=== PATIENT | female | born 1995 | race Caucasian/White ===

== ENCOUNTER 2023-01-08 09:26 | Outpatient (CLI) | payer OTHER, MEDICAID, SELFPAY ==
[2023-01-08 09:55] LABS: Basophils Absolute Auto 0.05 K/mm3 (0.00-0.10); Basophils Percent Auto 0.6 % (0.0-1.0); Eosinophils Absolute Auto 0.05 K/mm3 (0.02-0.50); Eosinophils Percent Auto 0.6 % (1.0-6.0); Hematocrit 39.6 % (35.0-49.0); Hemoglobin 13.6 g/dL (12.0-15.0); Immature Granulocyte Absolute 0.03 K/mm3 (0.00-0.00); Immature Granulocyte Percent A 0.4 % (0.0-0.0); Lymphocytes Absolute Auto 2.15 K/mm3 (1.10-4.50); Lymphocytes Percent Auto 26.5 % (18.0-42.0); Mean Corpuscular HGB Conc 34.3 g/dL (32.0-36.0); Mean Corpuscular Hemoglobin 30.9 pg (27.0-31.0); Monocytes Absolute Auto 0.62 K/mm3 (0.10-0.90); Monocytes Percent Auto 7.7 % (2.0-11.0); Neutrophils Absolute Auto 5.2 K/mm3 (1.7-7.2); Neutrophils Percent Auto 64.2 % (50.0-70.0); Platelet Count Result 296 K/mm3 (150-420); Red Cell Distribution Width 11.9 % (11.6-14.4); White Blood Count 8.1 K/mm3 (4.8-10.8)
[2023-01-08 10:56] LABS: Iron 102 ug/dL (50-170)
== END 2023-01-08 09:27 | disposition home or self-care (01) ==
LOC: CHSLAB 09:29
PROVIDERS: PCP Nurse Practitioner Family; Visit Provider Nurse Practitioner Family
DX: D50.9 Iron deficiency anemia, unspecified (principal); N91.2 Amenorrhea, unspecified
CPT/HCPCS: 36415; 83540; 84702; 85025

== ENCOUNTER 2023-01-17 12:47 | Outpatient (CLI) | payer OTHER, MEDICAID, SELFPAY ==
--- NOTE | ~2023-01-17 | US_ITS ---
EXAMINATION: US OB <= 14 weeks fetus DATE: 01/17/2023 13:29 INDICATION: First trimester dating TECHNIQUE: Real-time pelvic transabdominal and transvaginal ultrasound was performed. COMPARISON: None. FINDINGS: The uterus measures 11.9 x 6.7 x 5.5 cm. There is an intrauterine gestational sac. A yolk s ac is identified. heart motion is identified measuring 169 beats per minute (bpm) by M-mode Dop pler. The crown rump length measures 1.9 cm, which correlates with an estimated gestational age of 8 weeks and 3 day(s) (+/-) 4 day(s). The right ovary is not visualized however no right adnexal abnormality is seen. The left ovary measur es 2.2 x 2.2 x 1.4 cm. There is normal vascular flow in the left ovary. There is no free fluid in the pelvis. IMPRESSION: 1. Live intrauterine with an estimated gestational age of 8 weeks and 3 day(s) (+/-) 4 day( s) and an estimated delivery date of 08/26/2023. Reviewed, dictated and finalized at location A. IMPRESSION: 1. Live intrauterine with an estimated gestational age of 8 weeks and 3 day(s) (+/-) 4 day(s) and an estimated delivery date of 08/26/2023.
== END 2023-01-17 12:48 | disposition home or self-care (01) ==
LOC: CHSIMG 12:49
PROVIDERS: PCP Nurse Practitioner Family; Visit Provider Registered Nurse
DX: N91.2 Amenorrhea, unspecified (principal); Z3A.08 8 weeks gestation of pregnancy
CPT/HCPCS: 76801

== ENCOUNTER 2023-03-14 09:39 | Outpatient (CLI) | payer OTHER, MEDICAID, SELFPAY ==
[2023-03-14 10:02] LABS: Basophils Absolute Auto 0.01 K/mm3 (0.00-0.10); Basophils Percent Auto 0.1 % (0.0-1.0); Eosinophils Absolute Auto 0.06 K/mm3 (0.02-0.50); Eosinophils Percent Auto 0.6 % (1.0-6.0); Hemoglobin 12.9 g/dL (12.0-15.0); Immature Granulocyte Absolute 0.04 K/mm3 (0.00-0.00); Immature Granulocyte Percent A 0.4 % (0.0-0.0); Lymphocytes Absolute Auto 2.06 K/mm3 (1.10-4.50); Lymphocytes Percent Auto 20.5 % (18.0-42.0); Mean Corpuscular HGB Conc 33.9 g/dL (32.0-36.0); Mean Corpuscular Hemoglobin 30.3 pg (27.0-31.0); Mean Corpuscular Volume 89.2 fL (78.0-102.0); Mean Platelet Volume 11.7 fl (9.2-11.8); Monocytes Absolute Auto 0.49 K/mm3 (0.10-0.90); Monocytes Percent Auto 4.9 % (2.0-11.0); Neutrophils Absolute Auto 7.4 K/mm3 (1.7-7.2); Neutrophils Percent Auto 73.5 % (50.0-70.0); Platelet Count Result 235 K/mm3 (150-420); Red Blood Count 4.26 M/mm3 (4.20-5.40); Red Cell Distribution Width 12.5 % (11.6-14.4)
[2023-03-14 10:10] LABS: Appearance Urine Clear (Clear); Bilirubin Urine Negative (Negative); Blood Urine 1+ (Negative); Color Urine Light Yellow (Yellow); Glucose Urine UA Negative (Negative); Ketones Urine Negative (Negative); Leukocyte Esterase Ur Trace (Negative); Nitrate Urine Negative (Negative); Protein Urine Negative (Negative); Specific Grav Ur 1.025 (1.010-1.020); Urobilinogen Urine 0.2 mg/dL (0.2-1.0)
[2023-03-14 11:10] LABS: Thyroid Stimulating Hormone 1.07 uIU/mL (0.36-3.74)
[2023-03-14 11:39] LABS: Add Urine Microscopic? YES; Bacteria Urine 4+ /hpf; Squamous Epithelial Cell Urine Moderate /hpf (Few); WBC Urine 0-3 /hpf (0-3)
[2023-03-14 12:25] LABS: HIV 1 P24 AG Negative (Negative); HIV 1/2 AB Negative (Negative)
[2023-03-17 14:44] LABS: Hepatitis B Surface Antigen Nonreactive (Nonreactive); Hepatitis C Virus Antibody Nonreactive; RPR Screen Non-Reactive (Non-Reactive)
[2023-03-17 20:18] LABS: Vitamin D 25 Hydroxy 16 ng/mL (30-100)
[2023-03-18 07:53] LABS: Rubella IgG Antibody 5.98 Index
== END 2023-03-14 09:40 | disposition home or self-care (01) ==
LOC: CHSLAB 09:41
PROVIDERS: PCP Nurse Practitioner Family; Visit Provider Obstetrics & Gynecology
DX: Z34.91 Encounter for supervision of normal pregnancy, unspecified, first trimester (principal)
CPT/HCPCS: 36415; 81001; 82306; 84443; 85025; 86592; 86762; 86787; 86803; 86850; 86900; 86901; 87086; 87088; 87340; 87806

== ENCOUNTER 2023-06-27 14:13 | Outpatient (CLI) | payer OTHER, MEDICAID, SELFPAY ==
[2023-06-27 15:31] LABS: Hematocrit 34.4 % (35.0-49.0); Hemoglobin 11.5 g/dL (12.0-15.0); Mean Corpuscular HGB Conc 33.4 g/dL (32.0-36.0); Mean Corpuscular Hemoglobin 30.2 pg (27.0-31.0); Mean Corpuscular Volume 90.3 fL (78.0-102.0); Mean Platelet Volume 10.1 fl (9.2-11.8); Platelet Count Result 278 K/mm3 (150-420); Red Blood Count 3.81 M/mm3 (4.20-5.40); Red Cell Distribution Width 13.3 % (11.6-14.4); White Blood Count 8.3 K/mm3 (4.8-10.8)
[2023-06-27 15:57] LABS: Glucose 1 Hour PP 50gm Dose 147 mg/dL (70-130)
== END 2023-06-27 14:14 | disposition home or self-care (01) ==
LOC: CHSLAB 14:15
PROVIDERS: PCP Nurse Practitioner Family; Visit Provider Registered Nurse
DX: Z34.90 Encounter for supervision of normal pregnancy, unspecified, unspecified trimester (principal)
CPT/HCPCS: 36415; 82947; 85027

== ENCOUNTER 2023-07-01 14:07 | Outpatient (CLI) | payer OTHER, MEDICAID, SELFPAY ==
[2023-07-01 14:46] LABS: Glucose Fasting Gestational 83 mg/dL (>/=95)
[2023-07-01 15:39] LABS: Glucose 1 Hour Gest 173 mg/dL (70-130)
[2023-07-01 16:42] LABS: Glucose 2 Hour Gest 148 mg/dL (<155)
[2023-07-01 17:32] LABS: Glucose 3 Hour Gest 127 mg/dL (>/=140)
== END 2023-07-01 14:08 | disposition home or self-care (01) ==
LOC: CHSLAB 14:08
PROVIDERS: PCP Nurse Practitioner Family; Visit Provider Registered Nurse
DX: O99.810 Abnormal glucose complicating pregnancy (principal)
CPT/HCPCS: 36415; 82951; 82952

== ENCOUNTER 2023-07-04 10:30 | Outpatient (CLI) | payer OTHER, MEDICAID, SELFPAY ==
[2023-07-04 10:55] VITALS: BP 127/84; PULSE 103
[2023-07-04 10:58] VITALS: BP 127/84; PULSE 103
[2023-07-04 11:00] VITALS: BP 115/74; PULSE 97
--- NOTE | 2023-07-04 12:18 | PC.NURSE ---
Called and spoke with Dr. Shannon regarding NST and ROM plus results. MD verbalized understanding, discharge orders given at this time.
[2023-07-04 12:21] VITALS: BP 127/84; PULSE 94
== END 2023-07-04 12:24 | disposition home or self-care (01) ==
LOC: ANHOBOP 10:35 → ANHOBPP 10:35
PROVIDERS: PCP Nurse Practitioner Family; Visit Provider Obstetrics & Gynecology
DX: O42.90 Premature rupture of membranes, unspecified as to length of time between rupture and onset of labor, unspecified weeks of gestation (principal); Z3A.00 Weeks of gestation of pregnancy not specified
CPT/HCPCS: 59025; 84112; 99199

== ENCOUNTER 2023-07-24 13:37 | Observation (INO) | payer OTHER, MEDICAID, SELFPAY ==
--- NOTE | 2023-07-24 13:40 | OBADM ---
This patient, Reinier Harding, admitted to the OB room Labor/Delivery/Recovery 106 for observation. Patient/family oriented to hospital policies and general routines including ID bracelet, bed and alarms, visiting hours, pain management, procedures, bathroom and other care routines, personal items, smoking policy, room service/diet, and visiting hours. Patient/Family are encouraged to report perceived risks to care and to ask questions if they do not understand what they are told or what they should do.
[2023-07-24 14:00] VITALS: BP 121/79; PULSE 106
[2023-07-24 14:15] VITALS: BP 123/79; PULSE 102
[2023-07-24 14:30] VITALS: BP 124/78; PULSE 100
--- NOTE | 2023-08-05 12:03 | PM.OBTRLD ---
OB - Triage/Final Diagnosis Visit Information Comments/Additional reasons for admission: I have assessed the risk for this patient, Reinier Harding, and determined that she would benefit from observation care. Final Diagnosis (1) False labor: Code(s): O47.9 - False labor, unspecified Status: Acute
== END 2023-07-24 16:01 | disposition home or self-care (01) ==
PROVIDERS: Admitting Provider Obstetrics & Gynecology; PCP Nurse Practitioner Family; Visit Provider Obstetrics & Gynecology
DX: O47.03 False labor before 37 completed weeks of gestation, third trimester (principal); Z3A.35 35 weeks gestation of pregnancy
CPT/HCPCS: 84112; G0378; G0379

== ENCOUNTER 2023-07-31 13:55 | Outpatient (CLI) | payer OTHER, MEDICAID, SELFPAY ==
[2023-07-31 15:29] LABS: HIV 1/2 Ab P24 Ag Result Negative (Negative)
[2023-08-01 11:12] LABS: Rapid Plasma Reagin Non-Reactive (NonReactive)
== END 2023-07-31 13:56 | disposition home or self-care (01) ==
LOC: ANHLAB 13:56
PROVIDERS: PCP Nurse Practitioner Family; Visit Provider Nurse Practitioner Family
DX: Z34.00 Encounter for supervision of normal first pregnancy, unspecified trimester (principal); Z3A.00 Weeks of gestation of pregnancy not specified
CPT/HCPCS: 36415; 86592; 86703; G0432

== ENCOUNTER 2023-08-18 05:35 | Outpatient (CLI) | payer OTHER, MEDICAID, SELFPAY ==
[2023-08-18 06:01] VITALS: BP 125/82; PULSE 90
[2023-08-18 06:16] VITALS: BP 129/85; PULSE 97
[2023-08-18 06:31] VITALS: BP 131/82; PULSE 87
[2023-08-18 06:46] VITALS: BP 128/79; PULSE 84
[2023-08-18 07:01] VITALS: BP 121/80; PULSE 82
[2023-08-18 07:16] VITALS: BP 127/81; PULSE 80
--- NOTE | 2023-08-18 07:31 | OBADM ---
This patient, Reinier Harding, admitted to the OB room Labor/Delivery/Recovery 105 for observation. Patient/family oriented to hospital policies and general routines including ID bracelet, bed and alarms, visiting hours, pain management, procedures, bathroom and other care routines, personal items, smoking policy, room service/diet, and visiting hours. Patient/Family are encouraged to report perceived risks to care and to ask questions if they do not understand what they are told or what they should do.
== END 2023-08-18 07:35 ==
LOC: ANHOBOP 06:08 → ANHLDR 07:23
PROVIDERS: PCP Nurse Practitioner Family; Visit Provider Obstetrics & Gynecology
DX: O42.90 Premature rupture of membranes, unspecified as to length of time between rupture and onset of labor, unspecified weeks of gestation (principal); Z3A.00 Weeks of gestation of pregnancy not specified
CPT/HCPCS: 84112; 99199

== ENCOUNTER 2023-08-21 04:56 | Inpatient (IN) | payer OTHER, MEDICAID, SELFPAY ==
[2023-08-21] VITALS (225 sets, daily range): BP systolic 93–140; BP diastolic 44–101; PULSE 55–287; TEMP 36.5–37.7; O2SAT 94–100; BMI 38.2
--- NOTE | 2023-08-21 05:47 | LDADM ---
This patient, Reinier Harding, was admitted to Labor/Delivery/Recovery 107 on 08/21/23 at 04:56. Plans for labor, pain management and were discussed with patient. Patient/family oriented to hospital policies and general routines including ID bracelet, bed and alarms, visiting hours, pain management, procedures, bathroom and other care routines, personal items, smoking policy, room service/diet and guest tray routines, infant security routines, and visiting hours. Patient/Family are encouraged to report perceived risks to care and to ask questions if they do not understand what they are told or what they should do. See OBIX for further documentation.
[2023-08-21 06:02] LABS: Basophils Percent Auto 0.3 % (0.2-1.2); Eosinophils Absolute Auto 0.1 K/mm3 (0-0.3); Eosinophils Percent Auto 0.5 % (0-4.4); Hematocrit 34.5 % (37.0-47.0); Hemoglobin 11.7 g/dL (12.0-15.0); Immature Granulocyte Absolute 0.05 K/mm3 (0.00-0.031); Immature Granulocyte Percent A 0.4 % (0-0.5); Lymphocytes Absolute Auto 2.62 K/mm3 (0.9-3.2); Lymphocytes Percent Auto 23.3 % (18.3-44.2); Mean Corpuscular HGB Conc 33.9 g/dl (32-36); Mean Corpuscular Hemoglobin 30.3 pg (26-34); Mean Corpuscular Volume 89.4 fl (80-100); Mean Platelet Volume 11.3 fl (7.4-10.4); Monocytes Absolute Auto 0.6 K/mm3 (0.1-0.6); Monocytes Percent Auto 5.3 % (2.6-8.5); Neutrophils Absolute Auto 7.9 K/mm3 (1.3-6.7); Neutrophils Percent Auto 70.2 % (45.5-73.1); Platelet Count Result 282 k/mm3 (150-375); Red Blood Count 3.86 M/mm3 (4.2-5.4); Red Cell Distribution Width 13.6 % (11.5-14.5); White Blood Count 11.2 K/mm3 (4.5-10.0)
[2023-08-21] MEDS: OXYTOCIN 30 UNITS/NS 500 ML 30 UNITS/500 ML BAG 6 UNITS IV CONT (06:51)
[2023-08-21] MEDS: LACTATED RINGERS 1,000 ML 125 ML IV CONT ×2 (06:52→12:35)
--- NOTE | 2023-08-21 07:31 | P.HP_ITS ---
H&P: HPI History of Present Illness Date/Time: 08/21/23 07:31 Chief Complaint: Medical induction of labor Narrative: Patient at 39 4/7 by LMP c/w first trimester ultrasound admitted for MIL. PNC significant for anxiety. Labs reviewed. GBS neg. She has been counseled regarding risk benefits of induction versus spontaneous labor and has opted for induction of labor. Review of Systems Review of Systems: All systems reviewed & are unremarkable except as noted in HPI and below Constitutional: Constitutional: Reports no additional constitutional complaints and Denies headache(s) Eyes: Eyes: Denies spots in vision ENT: Reports system reviewed and no additional complaints, except as documented and Denies headache(s) Cardiovascular: Cardiovascular: Denies chest pain and Denies dyspnea Respiratory: Respiratory: Denies dyspnea Gastrointestinal: Gastrointestinal: Reports no additional gastrointestinal complaints Genitourinary: Genitourinary: Reports amenorrhea Musculoskeletal: Musculoskeletal: Reports no additional musculoskeletal complaints Integumentary/Breasts: Skin/Breast: Denies breast mass and Denies rash Neurologic: Denies headache(s) Psychiatric: Psychiatric: Reports no additional psychiatric complaints [facility] Past Medical History Medical History Depression Surgical History Surgical History History of tonsillectomy and adenoidectomy Family History Family History (Updated 07/31/23 @ 15:37 by Mariana Valdez RN) Grandparent Lupus Mother Cervical cancer Mother Hypertension Grandparent Breast cancer in female Grandparent Malignant neoplasm of prostate Social History Social History Smoking status: Former smoker Tobacco type: e-cigarettes/vaping Second hand tobacco smoke exposure: Yes Alcohol intake: never Substance use: never Do You Feel Safe in your Home?: No Lack of Transportation: No Lack of Food: Never True Current Housing: I Have Housing Concerned About Future Housing: No Difficulty Paying Gas/Electric Bills: No Difficulty Paying for Meds: No Currently Unemployed: No Education: Associate Degree Difficulty w/ Childcare or Family Care: No Living arrangements: other Additional living arrangements comments: Boyfriend Occupation/Education: occupation Gender identity (if verbalized by the patient): Female Sexual Orientation (if Verbalized by the Patient): Straight or Heterosexual Spiritual care concerns: No Meds Home Medications and Allergies Home Medications Medication Instructions Recorded Confirmed Type vitamin #56-iron 35 mg 1 cap PO DAILY #90 caps 01/08/23 08/15/23 Rx and 5 mg-folic acid 1 mg-dha capsule cholecalciferol (vitamin D3) 50 50 mcg PO DAILY 04/11/23 08/15/23 History mcg (2,000 unit) capsule azithromycin 250 mg tablet See Rx Instructions PO .COMPLEX #6 08/15/23 08/15/23 Rx (Zithromax Z-Aric) tabs Allergies Allergy/AdvReac Type Severity Reaction Status Date / Time adhesive tape Allergy Unknown Unknown Verified 08/15/23 10:43 amoxicillin Allergy Unknown Rash Verified 08/15/23 10:43 Vital Signs Vital Signs - 24 hr 08/21/23 06:50 08/21/23 07:15 08/21/23 07:30 Pulse Rate 90 102 H 90 Blood Pressure 128/78 125/84 136/90 Oxygen Delivery 08/21/23 05:15 Pulse Rate Blood Pressure Oxygen Delivery Room Air Exam Const: General: no acute distress Eyes: General: appearance normal, both eyes and all related structures Resp: Effort & Inspection: normal respiratory effort Cardio: Rate: regular rate GI: Other: Gravid no fundal tenderness no right upper quadrant pain Skin: General skin exam: no rashes or lesions noted Neuro: Cognition (Neuro): normal cognition Extrem: General: normal to inspection Psych: Mental Status: mental status grossly normal H&P: Results Labs Labs: Short CBC 08/21/23 Range/Units 05:21 WBC 11.2 H (4.5-10.0) K/mm3 Hgb 11.7 L (12.0-15.0) g/dL Hct 34.5 L (37.0-47.0) % Plt Count 282 (150-375) k/mm3 Assessment and Plan Assessment and plan (1) Elective induction of labor planned: Status: Acute Assessment and Plan: Admit.
--- NOTE | 2023-08-21 07:33 | PM.OBPNVD ---
OB - PN: Subj Subjective Date/time seen: 08/21/23 07:33 Interval history: fht 135, cat 1, irreg ctx, cervix /-2, AROM clear fluid, continue Pitocin induction. OB - PN: Obj Data Labs 08/21/23 05:21 Labs: Laboratory Results - last 24 hr 08/21/23 05:21 WBC 11.2 H RBC 3.86 L Hgb 11.7 L Hct 34.5 L MCV 89.4 MCH 30.3 MCHC 33.9 RDW 13.6 Plt Count 282 MPV 11.3 H Immature Gran % (Auto) 0.4 Neut % (Auto) 70.2 Lymph % (Auto) 23.3 [place] % (Auto) 5.3 Eos % (Auto) 0.5 Baso % (Auto) 0.3 Lymph # (Auto) 2.62 [place] # (Auto) 0.6 Eos # (Auto) 0.1 Baso # (Auto) 0.0 Abs Immat Gran (auto) 0.05 H Absolute Neuts (auto) 7.9 H Absolute Nucleated RBC 0.000 Nucleated RBC % 0.0 Blood Type O Positive Antibody Screen Negative OB - PN A/P Time Spent With Patient Time: Total time spent is greater than 50% in coordination of care (as documented) at patient's floor/unit and/or counseling patient:
[2023-08-21] MEDS: fentaNYL CITRATE INJ (*CRX) 100 MCG/2 ML VIAL 50 MCG IV PUSH (09:02)
[2023-08-21 14:27] LABS: Rapid Plasma Reagin Non-Reactive (NonReactive)
[2023-08-21] MEDS: OXYTOCIN 30 UNITS/NS 500 ML 30 UNITS/500 ML BAG 999 UNITS IV CONT (20:08)
--- NOTE | 2023-08-21 20:18 | PM.OBPRVD ---
OB - Vaginal Delivery Note Procedure Delivery date: 08/21/23 Induction method: Per Pitocin Protocol Delivery augmentation: Rupture of Membranes (clear) Delivery monitor: External FHT and Internal Uterine Route of delivery: Episiotomy description: None Laceration Description: None Quantitative Blood Loss (ml): 150 Anesthesia type: Epidural Disposition: Floor Complications: No immediate complications Narrative: She was admitted for [facility]. She had pitocin induction. She had AROM and progressed to active labor. She dilated to complete and had . [place] Baby Date of : 08/21/23 Time of : 20:04 Weeks of gestation at delivery: 39 Infant gender: Male presentation: vertex position: Right Occiput Anterior Placenta delivery description: Spontaneous Cord Vessel Description: 3 Vessels, Nuchal Cord (x1), Loose, Reduced (manually), Clamped/Cut and Delayed Cord Clamping score one minute: 9 score five minutes: 9 AMG Delivery Billing Delivery Delivery: Delivery Charge
[2023-08-21] MEDS: OXYTOCIN 30 UNITS/NS 500 ML 30 UNITS/500 ML BAG 125 UNITS IV CONT (20:35)
[2023-08-21] MEDS: IBUPROFEN 600 MG TABLET PO (22:10)
--- NOTE | 2023-08-21 22:24 | OBPPTRN ---
Patient transferred to post room #287 via wheelchair. Support person present. Oriented to unit, room, information board, rooming in, admission packet and security measures. Patient verbalizes understanding.
[2023-08-22 01:09] VITALS: BP 133/90; PULSE 72; RESP 18; TEMP 37.1; O2SAT 98
[2023-08-22 03:50] VITALS: BP 130/92; PULSE 64; RESP 18; TEMP 36.9; O2SAT 99
[2023-08-22 04:56] LABS: Hematocrit 28.9 % (37.0-47.0); Hemoglobin 9.8 g/dL (12.0-15.0)
[2023-08-22 08:30] VITALS: BP 118/82; PULSE 74; RESP 16; TEMP 36.4; O2SAT 99
[2023-08-22] MEDS: POLYSACCHARIDE IRON COMPLEX 150 MG CAPSULE PO (08:50)
[2023-08-22] MEDS: IBUPROFEN 600 MG TABLET PO (08:50)
[2023-08-22] MEDS: MULTIVIT/MIN/PREN/FOL AC/IRON TABLET 1 TAB PO (08:51)
[2023-08-22] MEDS: DOCUSATE SODIUM 100 MG CAPSULE PO (08:51)
--- NOTE | 2023-08-22 12:07 | PC.NURSE ---
[id number] Introductions were made, then consulted with patient to assess needs related to . Mother led the conversation with her?plans to feed?her infant and the?experience so far. Encouraged understanding of the benefits of skin to skin (demonstrating unwrapping and placing upright on her chest), stimulating with massage touch, changing positions to encourage wakefulness, how to watch for early feeding cues, responsive feeding, feeding on demand (aiming for 8-12 times in 24 hours, about every 2-3 hours), milk production, hand expression (copious milk expressed) building/maintaining a milk supply, duration of feeding, signs of adequate intake/output and how to record on the feeding sheet. Mother works well with her with encouragement and education. Reviewed positioning and ear, shoulder, hip alignment, supporting the breast to facilitate a deep latch, asymmetrical latch (off-center), leading with the chin with a big, open, wide gape and body close to mother. Infant latched optimally to the right, then the left breast in football position. Education given to the mother of how to visualize the suckling (with good rocking jaw motion), swallows (dropping of the lower jaw) and how to listen for drinking at the breast (the ka sound) which infant demonstrated well when not latched with a shallow latch. Parents introduced pacifiers last night and when was fussy father of baby would put a pacifier in the infants mouth. Caution was given to consider if infant is giving feeding cues, then latch deeply to the breast versus giving a baby a pacifier as that can confuse on latching deeply which at times demonstrates with latching on mother. Infant was able to maintain latch without pain to mother protecting the nipple with optimal positioning and latching. Reviewed comfort measures of healing with a warm, wet washcloth to rinse breast, then leave open to air-dry, good handwashing when or touching the breast/nipples to prevent infection. Mother voiced understanding of skin to skin, stimulating with massage touch, responsive feedings, hand expressed colostrum, talking to to encourage if it has been 2 -2.5 hours since the start of the last , to call if infant does not latch, or if there is discomfort with . Resources used for education were facilitated with the visual educational handouts/ tool/mom and baby guide. Inpatient/outpatient resources provided with feeding sheet, name written on the communication board, and the mom/baby guide. Parents voiced understanding of information, demonstrated learning and will call if there is a request for assistance. Reported to the Primary RN.
--- NOTE | 2023-08-22 14:05 | WPDANLDPN2 ---
Anes-Prog Note L&D Date/Time: 08/22/23 14:05 Comfortable throughout: labor and delivery Neuraxial method: epidural Epidural/Spinal procedure site: clean & non-tender Neuro status: Neuro function grossly intact. Cardiovascular status: normal Respiratory status: normal Airway patency: baseline Mental status: baseline Post-Op hydration status: normal Vital Signs: Last Vital Signs Temp 36.4 C 08/22/23 08:30 Pulse 74 08/22/23 08:30 Resp 16 08/22/23 08:30 BP 118/82 08/22/23 08:30 Pulse Ox 99 08/22/23 08:30 O2 Del Method Room Air 08/21/23 05:15 Pain score (VAS): 10 I/O: Intake & Output 08/21/23 08/22/23 08/22/23 23:59 07:59 15:59 Intake Total 100 Balance 100 Post-procedural complaints: none Patient feedback: Patient satisfied with anesthetic care.
[2023-08-22 16:00] VITALS: BP 126/86; PULSE 97; RESP 18; TEMP 36.9
[2023-08-22 19:45] VITALS: BP 129/95; PULSE 97; RESP 18; TEMP 36.8; O2SAT 98
[2023-08-22] MEDS: ACETAMINOPHEN 325 MG TABLET 650 MG PO (19:47)
[2023-08-23 07:25] VITALS: BP 107/61; PULSE 79; RESP 18; TEMP 37.4; O2SAT 99
--- NOTE | 2023-08-23 09:50 | PC.NURSE ---
Patient instructed to view the discharge video Mother & Baby Care, The First Two Weeks . Patient was given the opportunity and encouraged to ask questions. Patient verbalized understanding of information shared and has been given the mother/baby guide for home reference.
[2023-08-23] MEDS: MULTIVIT/MIN/PREN/FOL AC/IRON TABLET 1 TAB PO (09:55)
[2023-08-23] MEDS: IBUPROFEN 600 MG TABLET PO (09:55)
[2023-08-23] MEDS: POLYSACCHARIDE IRON COMPLEX 150 MG CAPSULE PO (09:55)
[2023-08-23] MEDS: DOCUSATE SODIUM 100 MG CAPSULE PO (09:55)
[2023-08-23 10:17] LABS: Basophils Absolute Auto 0.1 K/mm3 (0.0-0.1); Basophils Percent Auto 0.4 % (0.2-1.2); Eosinophils Absolute Auto 0.2 K/mm3 (0-0.3); Eosinophils Percent Auto 1.7 % (0-4.4); Hematocrit 30.6 % (37.0-47.0); Hemoglobin 10.2 g/dL (12.0-15.0); Immature Granulocyte Absolute 0.07 K/mm3 (0.00-0.031); Immature Granulocyte Percent A 0.6 % (0-0.5); Lymphocytes Absolute Auto 2.62 K/mm3 (0.9-3.2); Lymphocytes Percent Auto 21.6 % (18.3-44.2); Mean Corpuscular HGB Conc 33.3 g/dl (32-36); Mean Platelet Volume 11.5 fl (7.4-10.4); Monocytes Absolute Auto 0.9 K/mm3 (0.1-0.6); Monocytes Percent Auto 7.3 % (2.6-8.5); Neutrophils Absolute Auto 8.3 K/mm3 (1.3-6.7); Neutrophils Percent Auto 68.4 % (45.5-73.1); Platelet Count Result 231 k/mm3 (150-375); Red Cell Distribution Width 13.6 % (11.5-14.5); White Blood Count 12.1 K/mm3 (4.5-10.0)
[2023-08-23 10:24] LABS: Alanine Aminotransferase 19 U/L (6-35); Alkaline Phosphatase 124 U/L (38-126); Anion Gap 4 mmol/L (4-12); Aspartate Amino Transferase 22 U/L (14-36); Bilirubin,Total 0.3 mg/dL (0.2-1.3); Blood Urea Nitrogen 8 mg/dL (7-17); Calcium 8.8 mg/dL (8.4-10.2); Carbon Dioxide 24 mmol/L (22-30); Chloride 108 mmol/L (98-107); Estimated CRCL calculation 121 ml/min; Estimated Glomerular Filt Rate > 60; Glucose 76 mg/dL (65-110); Potassium 3.6 mmol/L (3.4-5.0); Sodium 136 mmol/L (137-145); Uric Acid 6.2 mg/dL (2.5-7.5)
[2023-08-23 11:34] VITALS: BP 131/91; PULSE 86; RESP 16; TEMP 37.2; O2SAT 99
--- NOTE | 2023-08-23 12:23 | PC.NURSE ---
[id number] Infant taken from the desk area to mother due to feeding cues visualized. Upon entering the room mother was returning from the bathroom and prepared to feed her infant. Demonstrated unwrapping, massage touch, checking the diaper, and infant was placed [id number] upright on mothers chest. Infant demonstrated feeding cues of born instincts to go to the breast. Mother assisted infant to the left breast using the cross cradle positioning. latched optimally effectively. Swallowing visualized and mother denied pain. Reported to the Primary RN.
--- NOTE | 2023-08-23 15:20 | PC.NURSE ---
Patient discharge papers signed at 1245 on 08/23/23. Patient did not leave the unit until 1520 due to having visitors.
--- NOTE | 2023-09-12 13:36 | P.DS_ITS ---
DS: Admitting Diagnosis Discharge Date 08/23/23 Admitting Diagnosis Medical induction of labor DS: Discharge Diagnosis Discharge Diagnosis (1) Vaginal delivery: Code(s): O80 - Encounter for full-term uncomplicated delivery Status: Acute OB - DS: Summary Hospital Course Hospital Course: She was admitted for medical induction of labor. Had Pitocin induction she had assisted rupture of membranes and progressed to active labor and had uncomplicated vaginal delivery. she did well. Baby did well. She was discharged to home on day 2. OB Procedures : Ultrasound OB Procedures Intrapartum: Spontaneous Vag Delivery OB Procedures: : None Peripartum Data Infant Delivery Method: Natural Vaginal Laceration Description: None Episiotomy description: None complications: none Status at Discharge Functional status at discharge: independent ambulation Time Spent with Patient Time attestation: Total time spent providing and/or coordinating discharge services: Exam Const: General: cooperative Orientation/consciousness: oriented to person, oriented to place and oriented to time HENMT: Face/Nose/Sinus: Normal external nose present Eyes: General: appearance normal, both eyes and all related structures Resp: Effort & Inspection: normal respiratory effort GI: Inspection: normal to inspection Skin: General skin exam: normal color Neuro: General: oriented to person, oriented to place and oriented to time Extrem: General: normal to inspection and no calf tenderness Psych: Appearance: grossly normal Mental Status: mental status grossly normal Discharge Plan Discharge Attending physician on discharge: Alex Shannon Consulting providers: Reynaldo Roy Discharging Clinician: Alex Shannon Patient Disposition: Home, Self-Care Activity: pelvic rest Diet: regular Discharge Instructions: Education: Mom and Baby Guide Given to: Mother Follow-Up: Call your delivering provider's office for an appointment to be seen in: 1 Week Mom and baby should come to the [facility] for the follow-up appointment. Appointment Date/Time: August 24, 2023 at 11:00 am What to expect at your follow-up visit: Blood Pressure Check, Physical Assessment Call [phone] if you are unable to keep your appointment time. BREAST CARE: * Wear a snug supportive bra. * For engorgement discomfort: Breast Feeding: * Apply warm moist washcloths * Express milk as needed to relieve engorgement * Wear loose clothing Bottle Feeding: * May apply ice packs * For sore nipples: * Identify correct latch-on * Apply warm moist washcloths before and after nursing * Air dry nipples after nursing * May apply Lansinoh cream to nipples EPISIOTOMY/PERINEAL CARE: * Until bleeding stops, use your shannan bottle after urinating * Change your pad frequently throughout the day * You may take sitz baths several times a day (fill your bathtub with warm water and soak for 20 minutes.) Do NOT bathe in the water * No tub baths until seen by your physician - You may shower ACTIVITY: * Rest as much as possible. * Do not exercise or lift anything heavier than your baby (such as laundry or other children.) * Avoid stairs or driving as much as possible. * Do not put anything into the vagina. No douching, tampons, or sexual activity until seen by physician. NOTIFY PHYSICIAN IF YOU HAVE ANY QUESTIONS OR IF ANY OF THE FOLLOWING SYMPTOMS OCCUR: * If your episiotomy or incision becomes red, swollen, or more painful than what you have experienced in the hospital. * If your vaginal bleeding becomes foul smelling. * If your vaginal bleeding becomes more heavy than a period or if your bleeding changes from pink to bright red. However, you may pass an occasional walnut- sized clot once or twice for the first week . * If you experience a sharp, shooting pain in you calves. * If you discover a hard, reddened area on your breast or if you experience flu- like symptoms. DIET: * Eat regular, well-balanced meals. * Drink plenty of fluids daily. If , drink to thirst. Stand Alone Forms: General Discharge Information Follow-up/Referrals: Alex Shannon MD [Physician] - 1 Week (call for appointment) Discharge Medications: No Action medroxyprogesterone [Depo-Provera] 150 mg/mL syringe 150 mg IM [id number] Qty: 1 0RF Date of admission: 08/21/23 04:56 Primary Care Provider: Nallely Salgado Admitting Provider: Alex Shannon Attending physician on admission: Alex Shannon Condition: Stable
== END 2023-08-23 15:20 | disposition home or self-care (01) | DRG 807 ==
LOC: ANHLDR 04:59 → ANHOB2 22:24
PROVIDERS: Admitting Provider Obstetrics & Gynecology; PCP Nurse Practitioner Family; Visit Provider Obstetrics & Gynecology
DX: O69.81X0 Labor and delivery complicated by cord around neck, without compression, not applicable or unspecified (principal); Z37.0 Single live birth; Z3A.39 39 weeks gestation of pregnancy; Z87.891 Personal history of nicotine dependence
CPT/HCPCS: 36415; 80053; 84550; 85014; 85018; 85025; 86592; 86850; 86900; 86901; A9270; J2590; J2795; J3010; J7120

== ENCOUNTER 2024-03-17 20:02 | Emergency (ER) | payer BC, SELFPAY ==
[2024-03-17] VITALS (7 sets, daily range): BP systolic 116–131; BP diastolic 83–99; PULSE 70; RESP 16; TEMP 36.4; O2SAT 97–100
--- NOTE | ~2024-03-17 | XR_ITS ---
EXAMINATION: XR chest 1V portable DATE: 03/17/2024 20:50 INDICATION: Upper back pain TECHNIQUE: frontal view of the chest was obtained. COMPARISON: None FINDINGS: The lungs are clear with no focal airspace opacities, pulmonary edema, pleural effusion or pneumothor ax. The cardiomediastinal silhouette is normal. Visualized bones and soft tissues are unremarkable. IMPRESSION: 1. Normal chest radiograph. Reviewed, dictated and finalized at location A. IMPRESSION: 1. Normal chest radiograph.
--- NOTE | ~2024-03-17 | CT_ITS ---
EXAMINATION: CT abdomen pelvis w con DATE: 03/17/2024 22:28 INDICATION: Left-sided abdominal pain TECHNIQUE: Computed tomography (CT) of the abdomen and pelvis was performed with 100 mL Omnipaque-350 intravenous contrast. Automated exposure control and iterative reconstruction technique were employe d. The dose-length product was 506.29 mGy-cm. COMPARISON: None FINDINGS: Lung bases are clear. Heart size is normal. No pericardial or pleural effusion. Focal hepatic steatos is at the ligamentum teres. Gallbladder, spleen, pancreas, bilateral adrenal glands and right kidney are normal. There are a few small regions of cortical scarring at the left kidney likely sequela prio r infection or infarction. Bowels including the appendix are normal. Bladder, anteverted uterus and b ilateral adnexa are unremarkable. No free intraperitoneal gas or fluid. No pathologically enlarged ab dominal or pelvic lymphadenopathy. Mild lumbar and lower thoracic spondylosis. IMPRESSION: 1. No acute intra-abdominal/pelvic process. Reviewed, dictated and finalized at location A.
--- NOTE | 2024-03-17 20:11 | ED.ABDPAIN ---
HPI - Abdominal Pain General Chief Complaint: Abdominal Pain Stated Complaint: Abd Pain Time Seen by Provider: 03/17/24 20:08 Source: patient Mode of arrival: ambulatory Limitations: no limitations History of Present Illness HPI narrative: 28 YEARS OLD WHITE FEMALE CAME TO THE ED WITH HER SIGNIFICANT OTHER COMPLAINING OF LEFT UPPER QUADRANT PAIN FOR THE LAST 2 WEEKS ASSOCIATED WITH UPPER BACK PAIN BILATERALLY. PATIENT IS NOT SURE THE CAME TOGETHER OR A DIFFERENT TIME. ABDOMINAL PAIN SHARP, STABBING, BACK PAIN IS DULL ACHING, SOMETIMES GET WORSE LYING DOWN FLAT. PATIENT IS 7 MONTHS . SHE DENIES ANY FEVER, CHILLS, NAUSEA, VOMITING, DENIES AGGRAVATING OR RELIEVING FACTORS OR RADIATION OF THE ABDOMINAL PAIN. PATIENT DOES VAPE, DRINK OCCASIONALLY, NO DRUGS Related Data Allergies Allergy/AdvReac Type Severity Reaction Status Date / Time adhesive tape Allergy Unknown Unknown Verified 03/17/24 20:16 amoxicillin Allergy Unknown Rash Verified 03/17/24 20:16 Review of Systems Review of Systems: All systems reviewed & are unremarkable except as noted in HPI and below PMFSH Past Medical History Medical History Depression Surgical History Surgical History History of tonsillectomy and adenoidectomy Family History Family History Grandparent Lupus Mother Cervical cancer Mother Hypertension Grandparent Breast cancer in female Grandparent Malignant neoplasm of prostate Social History Social History Smoking status: Former smoker Tobacco type: e-cigarettes/vaping Second hand tobacco smoke exposure: Yes Alcohol intake: never Substance use: never Do You Feel Safe in your Home?: No Lack of Transportation: No Lack of Food: Never True Current Housing: I Have Housing Concerned About Future Housing: No Difficulty Paying Gas/Electric Bills: No Difficulty Paying for Meds: No Currently Unemployed: No Education: Associate Degree Difficulty w/ Childcare or Family Care: No Living arrangements: other Additional living arrangements comments: Boyfriend Occupation/Education: occupation Gender identity (if verbalized by the patient): Female Sexual Orientation (if Verbalized by the Patient): Straight or Heterosexual Spiritual care concerns: No Exam Narrative: GENERAL APPEARANCE: WELL-DEVELOPED, WELL-NOURISHED SKIN: NORMAL COLOR HEAD: NORMOCEPHALIC, NONTRAUMATIC EYES: CLEAR CONJUNCTIVA ENT: OROPHARYNX NORMAL, EARS NORMAL, NOSE NORMAL NECK: SUPPLE, NONTENDER CHEST AND RESPIRATORY: AIRWAY PATENT, NO RESPIRATORY DISTRESS, NO ACCESSORY MUSCLE USE HEART: REGULAR RATE/RHYTHM ABDOMEN: SOFT, NONTENDER, NO ORGANOMEGALY, QUIET BOWEL SOUNDS VASCULAR: NORMAL PERIPHERAL PULSES, NORMAL CAPILLARY REFILL. MUSCULOSKELETAL: SOME DIFFUSE TENDERNESS AT THE LEFT SIDE OF UPPER BACK, NO BRUISES, NO SWELLING OR RASH NEUROLOGIC: ALERT AND ORIENTED ?3, VAN HELPER IS NORMAL TESTED, NO GROSS MOTOR DEFICIT Course Vital Signs Vital signs: Vital Signs Temperature 36.4 C 03/17/24 20:02 Pulse Rate 70 03/17/24 20:02 Respiratory Rate 16 03/17/24 20:02 Blood Pressure 126/86 03/17/24 20:02 Pulse Oximetry 98 03/17/24 20:02 Oxygen Delivery Room Air 03/17/24 20:02 Temperature 36.4 C 03/17/24 20:02 Pulse Rate 70 03/17/24 20:02 Respiratory Rate 16 03/17/24 20:02 Blood Pressure 126/86 03/17/24 20:02 Pulse Oximetry 98 03/17/24 20:02 Oxygen Delivery Room Air 03/17/24 20:02 [facility] - Abd
[2024-03-17] MEDS: SODIUM CHLORIDE 0.9% IV 1,000 ML 999 ML IV CONT (20:48)
[2024-03-17 21:10] LABS: Basophils Absolute Auto 0.05 K/mm3 (0.00-0.10); Basophils Percent Auto 0.7 % (0.0-1.0); Eosinophils Absolute Auto 0.04 K/mm3 (0.02-0.50); Eosinophils Percent Auto 0.6 % (1.0-6.0); Hematocrit 39.7 % (35.0-49.0); Hemoglobin 13.9 g/dL (12.0-15.0); Immature Granulocyte Absolute 0.02 K/mm3 (0.00-0.00); Immature Granulocyte Percent A 0.3 % (0.0-0.0); Lymphocytes Absolute Auto 2.26 K/mm3 (1.10-4.50); Lymphocytes Percent Auto 32.9 % (18.0-42.0); Mean Corpuscular Hemoglobin 30.2 pg (27.0-31.0); Mean Corpuscular Volume 86.1 fL (78.0-102.0); Mean Platelet Volume 11.1 fl (9.2-11.8); Monocytes Absolute Auto 0.53 K/mm3 (0.10-0.90); Monocytes Percent Auto 7.7 % (2.0-11.0); Neutrophils Absolute Auto 3.97 K/mm3 (1.70-7.20); Neutrophils Percent Auto 57.8 % (50.0-70.0); Platelet Count Result 337 K/mm3 (150-420); Red Blood Count 4.61 M/mm3 (4.20-5.40); Red Cell Distribution Width 12.2 % (11.6-14.4); White Blood Count 6.9 K/mm3 (4.8-10.8)
[2024-03-17 21:15] LABS: Add Urine Microscopic? NO; Appearance Urine Clear (Clear); Bilirubin Urine Negative (Negative); Blood Urine Trace-intact (Negative); Color Urine Light Yellow (Yellow); Glucose Urine UA Negative (Negative); Ketones Urine Trace (Negative); Leukocyte Esterase Ur Negative LEU/UL (Negative); Nitrate Urine Negative (Negative); Protein Urine Negative (Negative); Specific Grav Ur 1.015 (1.010-1.020); pH Urine 6.5 (5.0-8.0)
[2024-03-17 21:17] LABS: Pregnancy On Board Control Positive; Urine Pregnancy Test Negative
[2024-03-17 21:25] LABS: Alanine Aminotransferase 19 U/L (14-59); Albumin Level 3.5 g/dL (3.4-5.0); Alkaline Phosphatase 89 U/L (46-116); Anion Gap 8 mmol/L (4-12); Aspartate Amino Transferase < 10 U/L (15-37); Bilirubin,Total 0.7 mg/dL (0.00-1.00); Blood Urea Nitrogen 14 mg/dL (7-18); Calcium 8.8 mg/dL (8.5-10.1); Carbon Dioxide 28 mmol/L (21-32); Chloride 105 mmol/L (98-108); Estimated CRCL calculation 78 ml/min; Estimated Glomerular Filt Rate > 60; Glucose 81 mg/dL (70-99); Lipase 33 U/L (16-77); Osmolality Calculated 291 mOsm/kg (285-295); Potassium 3.3 mmol/L (3.5-5.1); Sodium 141 mmol/L (136-145); Total Protein 7.4 g/dL (6.4-8.2)
== END 2024-03-17 23:20 | disposition home or self-care (01) ==
PROVIDERS: Emergency Provider Emergency Medicine; PCP Nurse Practitioner Family
DX: R10.12 Left upper quadrant pain (principal); M54.6 Pain in thoracic spine; Z87.891 Personal history of nicotine dependence
CPT/HCPCS: 36415; 71045; 74177; 80053; 81003; 81025; 83690; 85025; 99284; J7030; Q9967

== ENCOUNTER 2024-07-02 06:40 | Emergency (ER) | payer OTHER, SELFPAY ==
--- NOTE | ~2024-07-02 | CT_ITS ---
Noncontrast CT scan of the cervical spine Technique: Multiple contiguous axial [address] images of the cervical spine were obtained and rec onstructed in 2D sagittal and coronal planes on the acquisition scanner. Dose reduction technique was used on this scan by utilizing automated exposure control, adjustment of the mA and/or kV according to patient size. The dose-length product (DLP) was 315.70 mGy-cm. Clinical History: Pain Findings: No fractures or dislocations. Unremarkable visualized bony structures. The intervertebral disc spaces are preserved. No prevertebral soft tissue swelling. Impression: No fracture or subluxation of the cervical spine. Reviewed, dictated and finalized at location . ONAL COMPUTER NETWORK ENGINEER Impression: No fracture or subluxation of the cervical spine.
--- OUTSIDE RECORDS SUMMARY | 2024-07-02 06:42 | XMS_ITS | Clinical Summary ---
Author Organization [facility] Address [address] [place] [phone] Phone Care Team Providers Care Linen Tech Name Role Phone Unavailable Primary Care Provider Unavailabl e Encounters Date Type Department Care Team Description 06/23/2024 External Device Data STL ABSTRACTION Provider, Abstract 06/17/2024 External Device Data [facility] ABSTRACTION Provider, Abstract 06/17/2024 External Device Data ST[facility] ABSTRACTION Provider, Abstract from Last 3 Months Social History Tobacco Use Types Packs/Day Years Used Date Smoking Tobacco: Never Assessed Comments Unknown Sex and Gender Information Value Date Recorded Sex Assigned at Not on file Legal Sex Female 1:10 PM CDT Gender Identity Not on file Sexual Orientation Not on file Plan of Treatment Health Maintenance Due Date Last Done Comments DTAP/TDAP/TD VACCINES (1 - Tdap) 11/26/2015 HEPATITIS B VACCINES (1 of 3 - 19+ 3-dose series) 11/26/2015 CERVICAL CANCER SCREENING 2017 INFLUENZA VACCINE (#1) 2023 HPV VACCINES Aged Out No longer eligi ble based on patient's age to complete this topic PNEUMOCOCCAL VACCINE 0-64 YEARS Aged Out No longer eligible based on patient's age to complete this topic Insurance [employer] MEDICAID [place]
[2024-07-02 06:43] VITALS: BP 129/82; PULSE 96; RESP 18; TEMP 36.8; O2SAT 100
--- NOTE | 2024-07-02 07:06 | ED.GENADULT ---
HPI - General Adult General Chief complaint: Extremity Problem,Nontraumatic Stated complaint: neck pain Time Seen by Provider: 07/02/24 07:02 Source: patient Mode of arrival: ambulatory Limitations: no limitations History of Present Illness HPI narrative: 28 years old white female drove herself to the emergency room complaining of left neck pain radiating to left upper extremity intermittently over the last 2 years after try to pop her neck. Patient report get flare up again few days ago, was seen by chiropractor 4 days ago and yesterday with slight improvement. Patient report pain at the left side of the neck and going to left shoulder with numbness of the hand. Patient denies any numbness or tingling the or the forearm. Patient denies any fever chills nausea vomiting or recent trauma. Related Data Allergies Allergy/AdvReac Type Severity Reaction Status Date / Time adhesive tape Allergy Unknown Unknown Verified 04/16/24 15:13 amoxicillin Allergy Unknown Rash Verified 04/16/24 15:13 Review of Systems Review of Systems: All systems reviewed & are unremarkable except as noted in HPI and below PMFSH Past Medical History Medical History Depression Surgical History Surgical History History of tonsillectomy and adenoidectomy Family History Family History Grandparent Lupus Mother Cervical cancer Mother Hypertension Grandparent Breast cancer in female Grandparent Malignant neoplasm of prostate Social History Social History Smoking status: Former smoker Tobacco type: e-cigarettes/vaping Second hand tobacco smoke exposure: Yes Alcohol intake: never Substance use: never Do You Feel Safe in your Home?: No Lack of Transportation: No Lack of Food: Never True Current Housing: I Have Housing Concerned About Future Housing: No Difficulty Paying Gas/Electric Bills: No Difficulty Paying for Meds: No Currently Unemployed: No Education: Associate Degree Difficulty w/ Childcare or Family Care: No Living arrangements: other Additional living arrangements comments: Boyfriend Occupation/Education: occupation Gender identity (if verbalized by the patient): Female Sexual Orientation (if Verbalized by the Patient): Straight or Heterosexual Spiritual care concerns: No Exam Narrative: General appearance: Well-developed, well-nourished Skin: Normal color Head: Normocephalic, nontraumatic Eyes: Clear conjunctiva ENT: Oropharynx normal, ears normal, nose normal Neck: Diffuse tenderness left side of neck, no bruises, no swelling, no rash, no lymphadenopathy or massr Vascular: Normal peripheral pulses, normal capillary refill. 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 is normal as tested, no gross motor deficit Course Vital Signs Vital signs: Vital Signs Temperature 36.8 C 07/02/24 06:43 Pulse Rate 96 07/02/24 06:43 Respiratory Rate 18 07/02/24 06:43 Blood Pressure 129/82 07/02/24 06:43 Pulse Oximetry 100 07/02/24 06:43 Oxygen Delivery Room Air 07/02/24 06:43 Temperature 36.8 C 07/02/24 06:43 Pulse Rate 96 07/02/24 06:43 Respiratory Rate 18 07/02/24 06:43 Blood Pressure 129/82 07/02/24 06:43 Pulse Oximetry 100 07/02/24 06:43 Oxygen Delivery Room Air 07/02/24 06:43 Medical Decision Making Vital Signs Vital Signs: Vital Signs Temperature 36.8 C 07/02/24 06:43 Pulse Rate 96 07/02/24 06:43 Respiratory Rate 18 07/02/24 06:43 Blood Pressure 129/82 07/02/24 06:43 Pulse Oximetry 100 07/02/24 06:43 Oxygen Delivery Room Air 07/02/24 06:43 Temperature 36.8 C 07/02/24 06:43 Pulse Rate 96 07/02/24 06:43 Respiratory Rate 18 07/02/24 06:43 Blood Pressure 129/82 07/02/24 06:43 Pulse Oximetry 100 07/02/24 06:43 Oxygen Delivery Room Air 07/02/24 06:43 Critical Care Time Critical Care Time Critical Care Time: No Discharge Plan Discharge Clinical Impression: Cervical radiculopathy Patient Disposition: Home, Self-Care Condition: Stable Instructions: Cervical Radiculopathy (ED) Additional Instructions: Return if symptoms are worsening , call your family physician for appointment, take Tylenol, ibuprofen as as needed for aches and pain, continue home medications. Patient Language: Armenian Prescriptions: New methylprednisolone [Medrol (Aric)] 4 mg tablets,dose pack See Rx Instructions PO .COMPLEX Qty: 21 0RF Rx Instructions: orally per package directions cyclobenzaprine 10 mg tablet 10 mg PO TID PRN (Reason: muscle spasm) Qty: 20 0RF No Action sertraline [Zoloft] 50 mg tablet 50 mg PO DAILY Qty: 90 3RF levonorgestrel-ethinyl estrad [Lutera (28)] 0.1-20 mg-mcg tablet 1 tablet PO DAILY Qty: 84 4RF Follow-up/Referrals: Nallely Salgado, HEALTH INFORMATION DIRECTOR [Primary Care Provider] -
[2024-07-02] MEDS: dexAMETHasone SOD PHOS INJ 10 MG/ML 1 ML VIAL IM (07:26)
--- OUTSIDE RECORDS SUMMARY | 2024-07-02 07:50 | XMS_ITS | Clinical Summary ---
Author Organization [facility] Address [address] [place] [phone] Phone Care Team Providers Care Insulation Board Head Saw Operator Name Role Phone Unavailable Primary Care Provider [...] complete this topic Insurance [employer] MEDICAID [place]
[2024-07-02 08:05] VITALS: BP 122/80; PULSE 82; RESP 17; TEMP 36.9; O2SAT 100
== END 2024-07-02 08:05 | disposition home or self-care (01) ==
LOC: CHSED 07:45
PROVIDERS: Emergency Provider Emergency Medicine; PCP Nurse Practitioner Family
DX: M54.12 Radiculopathy, cervical region (principal); Z87.891 Personal history of nicotine dependence
CPT/HCPCS: 72125; 96372; 99284; J1100

== ENCOUNTER 2024-11-11 16:31 | Outpatient (NON) | payer OTHER, MEDICAID, SELFPAY | END 2024-11-11 16:32 | disposition home or self-care (01) | LOC: CHSLAB 16:33 | PROVIDERS: PCP Nurse Practitioner Family; Visit Provider Nurse Practitioner Family | DX: R30.9 Painful micturition, unspecified (principal) | CPT/HCPCS: 87086 ==

== ENCOUNTER 2024-11-11 16:44 | Outpatient (CLI) | payer OTHER, MEDICAID, SELFPAY ==
[2024-11-11 17:01] LABS: Basophils Absolute Auto 0.05 K/mm3 (0.00-0.10); Basophils Percent Auto 0.6 % (0.0-1.0); Eosinophils Absolute Auto 0.06 K/mm3 (0.02-0.50); Eosinophils Percent Auto 0.7 % (1.0-6.0); Hematocrit 38.7 % (35.0-49.0); Immature Granulocyte Absolute 0.03 K/mm3 (0.00-0.00); Immature Granulocyte Percent A 0.3 % (0.0-0.0); Lymphocytes Absolute Auto 2.56 K/mm3 (1.10-4.50); Lymphocytes Percent Auto 29.2 % (18.0-42.0); Mean Corpuscular HGB Conc 33.6 g/dL (32-36); Mean Corpuscular Hemoglobin 29.9 pg (27.0-31.0); Mean Platelet Volume 10.6 fl (9.2-11.8); Monocytes Absolute Auto 0.64 K/mm3 (0.10-0.90); Monocytes Percent Auto 7.3 % (2.0-11.0); Neutrophils Absolute Auto 5.43 K/mm3 (1.70-7.20); Neutrophils Percent Auto 61.9 % (50.0-70.0); Platelet Count Result 351 K/mm3 (150-420); Red Blood Count 4.35 M/mm3 (4.20-5.40); White Blood Count 8.8 K/mm3 (4.8-10.8)
[2024-11-11 17:29] LABS: Alanine Aminotransferase 17 U/L (6-35); Albumin Level 4.2 g/dL (3.5-5.1); Alkaline Phosphatase 65 U/L (38-126); Anion Gap 5 mmol/L (4-12); Aspartate Amino Transferase 19 U/L (14-36); Bilirubin,Total 0.7 mg/dL (0.2-1.3); Blood Urea Nitrogen 12 mg/dL (7-17); Calcium 9.2 mg/dL (8.4-10.2); Carbon Dioxide 27 mmol/L (22-30); Chloride 110 mmol/L (98-107); Estimated Glomerular Filt Rate > 60; Glucose 80 mg/dL (65-110); Iron 164 ug/dL (37-170); Osmolality Calculated 292 mOsm/kg (285-295); Potassium 3.9 mmol/L (3.4-5.0); Sodium 142 mmol/L (137-145); Total Protein 7.2 g/dL (6.3-8.2)
[2024-11-11 17:39] LABS: Percent Iron Saturation 42 % (20-50)
[2024-11-11 17:47] LABS: Beta HCG Quantitative < 2.39 mIU/ML; Free T4 Free Thyroxine 0.95 ng/dL (0.78-2.19); Vitamin D 25 Hydroxy 15.8 ng/mL
[2024-11-12 17:44] LABS: Total Triiodothyronine (T3) 139 ng/dL (76-181)
== END 2024-11-11 16:45 | disposition home or self-care (01) ==
LOC: CHSLAB 16:46
PROVIDERS: PCP Nurse Practitioner Family; Visit Provider Nurse Practitioner Family
DX: D50.9 Iron deficiency anemia, unspecified (principal); R53.83 Other fatigue; Z79.899 Other long term (current) drug therapy; E53.8 Deficiency of other specified B group vitamins; R82.4 Acetonuria; I10 Essential (primary) hypertension
CPT/HCPCS: 36415; 80053; 82306; 82607; 83036; 83540; 83550; 83735; 84439; 84443; 84480; 84702; 85025

== ENCOUNTER 2025-03-30 12:24 | Outpatient (CLI) | payer OTHER, SELFPAY ==
--- NOTE | ~2025-03-30 | XR_ITS ---
XR lumbar spine 2-3V 03/30/2025 13:10 Indication: Spinal cord disease Procedure: 3 views lumbar spine Comparison: No prior studies for comparison. Findings: Vertebral body heights are maintained. No fracture, subluxation or dislocation. Pedicles intact. Sacral foramen are symmetric. No evidence for spondylolisthesis. No disc narrowing. Impression: 1: No significant abnormality of the lumbar spine. Reviewed, dictated and finalized at location O. ISTRY TECHNOLOGIST Impression: 1: No significant abnormality of the lumbar spine.
--- NOTE | ~2025-03-30 | XR_ITS ---
XR cervical spine 4-5V 03/30/2025 13:10 Indication: Neck pain. Procedure: 5 views of the cervical spine Comparison: 03/30/2025 Findings: Vertebral body and disc heights are preserved. No fracture, subluxation or dislocation. No abnormality of the lung apices. Odontoid process is normal. Lateral masses normally aligned. Mild uncinate degenerative change at C3-4, C4-5 and C5-6. Impression: 1: Mild cervical spondylosis. Reviewed, dictated and finalized at location O. ODI[employer] A[employer] E[employer]IPMENT Impression: 1: Mild cervical spondylosis.
--- NOTE | ~2025-03-30 | XR_ITS ---
XR thoracic spine 3V 03/30/2025 13:10 Indication: Back pain Procedure: 3 views thoracic spine Comparison: No prior studies for comparison. Findings: Vertebral body heights are maintained. Pedicles intact. No paraspinal soft tissue abnormality. Surrounding osseous structures are within normal limits. No fracture or traumatic malalignment. Impression: 1: No significant abnormality of the thoracic spine. Reviewed, dictated and finalized at location O. ICAL BIOSTATISTICIAN Impression: 1: No significant abnormality of the thoracic spine.
[2025-03-30 12:41] LABS: Add Urine Microscopic? YES; Appearance Urine Clear (Clear); Glucose Urine UA Negative (Negative); Leukocyte Esterase Ur Negative LEU/UL (Negative); Nitrate Urine Negative (Negative); Pregnancy On Board Control Positive; Specific Grav Ur 1.015 (1.010-1.020)
[2025-03-30 12:44] LABS: Hematocrit 43.2 % (35.0-49.0); Hemoglobin 14.5 g/dL (12.0-15.0); Immature Granulocyte Percent A 0.5 % (0.0-0.0); Lymphocytes Absolute Auto 2.45 K/mm3 (1.10-4.50); Mean Corpuscular HGB Conc 33.6 g/dL (32-36); Mean Corpuscular Hemoglobin 29.7 pg (27.0-31.0); Mean Corpuscular Volume 88.5 fL (78.0-102.0); Nucleated Red Blood Cells Absolute Auto 0.00 K/mm3 (0.00-0.00); Nucleated Red Blood Cells Perc 0.0 % (0-0.0); Platelet Count Result 384 K/mm3 (150-420); Red Blood Count 4.88 M/mm3 (4.20-5.40); White Blood Count 8.2 K/mm3 (4.8-10.8)
[2025-03-30 13:12] LABS: Alanine Aminotransferase 18 U/L (6-35); Albumin Level 5.0 g/dL (3.5-5.1); Alkaline Phosphatase 84 U/L (38-126); Anion Gap 9 mmol/L (4-12); Aspartate Amino Transferase 22 U/L (14-36); Bilirubin,Total 1.7 mg/dL (0.2-1.3); Blood Urea Nitrogen 10 mg/dL (7-17); Calcium 9.6 mg/dL (8.4-10.2); Carbon Dioxide 27 mmol/L (22-30); Chloride 108 mmol/L (98-107); Estimated Glomerular Filt Rate > 60; Glucose 92 mg/dL (65-110); Osmolality Calculated 297 mOsm/kg (285-295); Potassium 4.2 mmol/L (3.4-5.0); Sodium 144 mmol/L (137-145); Total Protein 8.2 g/dL (6.3-8.2)
--- OUTSIDE RECORDS SUMMARY | 2025-03-30 14:14 | XMS_ITS | Clinical Summary ---
Author Organization [facility] Address [address] [place] [phone] Phone Care Team Providers Care Metal Tank Builder Name Role Phone Unavailable Primary Care Provider Unavailabl e Social History Tobacco Use Types Packs/Day Years [...] (1 of 3 - 19+ 3-dose series) 06/2015 CERVICAL CANCER SCREENING 2017 HPV/Cotest (21-29) 2017 PAP SMEAR 2017 HPV VACCINES (1 - 3-dose SCDM series) 11/26/2023 INFLUENZA VACCINE (#1) 2024 Insurance [employer] [id number]
== END 2025-03-30 12:25 | disposition home or self-care (01) ==
LOC: CHSLAB 12:25
PROVIDERS: PCP Nurse Practitioner Family; Visit Provider Nurse Practitioner Family
DX: R10.A2 Flank pain, left side (principal); R10.24 Suprapubic pain; G95.9 Disease of spinal cord, unspecified; M43.02 Spondylolysis, cervical region
CPT/HCPCS: 36415; 72050; 72072; 72100; 80053; 81001; 81025; 85025